=== PATIENT | female | born 1975 | race Caucasian/White ===

== ENCOUNTER 2019-03-19 12:58 | Observation (INO) ==
[2019-03-19 13:54] LABS: Basophils # 0.1 K/mcL (0.0-0.2); Basophils % 0.8 %; Eosinophils # 0.1 K/mcL (0.0-0.6); Eosinophils % 1.5 %; Hematocrit 36.1 % (35.3-44.9); Hemoglobin 12.1 g/dL (11.5-15.4); Immature Granulocytes % 0.2 % (0-4); Lymphocytes # 2.2 K/mcL (0.6-4.6); Lymphocytes % 33.1 %; Mean Corpuscular HGB Conc 33.5 g/dL (31.6-35.5); Mean Corpuscular Hemoglobin 28.8 pg (28.0-33.3); Mean Platelet Volume 9.4 fL (9.4-12.4); Monocytes # 0.6 K/mcL (0.0-1.3); Monocytes % 8.6 %; Neutrophils # 3.7 K/mcL (1.6-8.9); Platelet Count 283 K/mcL (140-400); Red Cell Distribution Width 12.2 % (11.5-14.5); Segmented Neutrophils % 55.8 %; White Blood Count 6.6 K/mcL (4.3-11.1)
[2019-03-19 14:05] LABS: Prothrombin Time 11.3 Seconds (9.4-12.1)
[2019-03-19 14:09] LABS: Activated Partial Thrombo Time 33.3 Seconds (26.0-36.0)
[2019-03-19 14:15] LABS: BUN/Creatinine Ratio 16 (6-26); Blood Urea Nitrogen 12 mg/dL (6-20); Calcium 9.2 mg/dL (8.6-10.3); Carbon Dioxide 26 mEq/L (23-29); Chloride 106 mEq/L (98-107); Glucose 91 mg/dL (70-105); Osmolality,Calculated 289 (280-300); Potassium 3.8 mEq/L (3.5-5.1); Sodium 140 mEq/L (136-145); Troponin I < 0.03 ng/mL (< 0.04); eGFR For African Americans > 60 (> 60); eGFR For Non-African Americans > 60 (> 60)
[2019-03-19] MEDS: Aspirin 81 MG TAB.CHEW PO SCH (15:10)
[2019-03-19] MEDS ORDERED: Naloxone 0.4 MG/ML INJ IVP PRN (15:45)
[2019-03-19] MEDS ORDERED: Ondansetron 4 MG/2 ML VIAL IVP PRN (15:45)
[2019-03-19] MEDS: Amoxicillin Susp 250 MG/5 ML UDC PO SCH (23:59)
[2019-03-20 01:04] LABS: Basophils # 0.1 K/mcL (0.0-0.2); Basophils % 0.7 %; Eosinophils # 0.1 K/mcL (0.0-0.6); Eosinophils % 1.6 %; Hematocrit 34.5 % (35.3-44.9); Hemoglobin 11.8 g/dL (11.5-15.4); Immature Granulocytes % 0.1 % (0-4); Lymphocytes # 3.6 K/mcL (0.6-4.6); Lymphocytes % 51.6 %; Mean Corpuscular HGB Conc 34.2 g/dL (31.6-35.5); Mean Corpuscular Hemoglobin 28.7 pg (28.0-33.3); Mean Corpuscular Volume 83.9 fL (83.0-100.0); Mean Platelet Volume 9.5 fL (9.4-12.4); Monocytes # 0.5 K/mcL (0.0-1.3); Monocytes % 6.5 %; Neutrophils # 2.7 K/mcL (1.6-8.9); Platelet Count 290 K/mcL (140-400); Red Blood Count 4.11 M/mcL (3.82-4.97); Red Cell Distribution Width 12.1 % (11.5-14.5); Segmented Neutrophils % 39.5 %; White Blood Count 6.9 K/mcL (4.3-11.1)
[2019-03-20 01:24] LABS: BUN/Creatinine Ratio 15 (6-26); Blood Urea Nitrogen 14 mg/dL (6-20); Calcium 8.9 mg/dL (8.6-10.3); Carbon Dioxide 23 mEq/L (23-29); Chloride 107 mEq/L (98-107); Chol/HDL Ratio 2.7 (0-4.9); Cholesterol 176 mg/dL (< 200); Glucose 162 mg/dL (70-105); HDL Cholesterol 66 mg/dL (40-59); LDL Cholesterol,Calculated 97 mg/dL (0-99); Osmolality,Calculated 292 (280-300); Potassium 3.3 mEq/L (3.5-5.1); Sodium 139 mEq/L (136-145); Triglycerides 65 mg/dL (< 150); eGFR For African Americans > 60 (> 60); eGFR For Non-African Americans > 60 (> 60)
[2019-03-20] MEDS: Acetaminophen 325 MG TABLET PO PRN ×2 (03:22→09:36)
[2019-03-20 07:06] VITALS: BP 107/68
[2019-03-20] MEDS: Aspirin 81 MG TAB.CHEW PO SCH (09:32)
[2019-03-20] MEDS: Amoxicillin Susp 250 MG/5 ML UDC PO SCH (09:36)
== END 2019-03-20 11:42 | disposition home or self-care (01) ==
LOC: EMEROOARM 12:58 → 3BNU 12:58
PROVIDERS: ADMIT Pharmacist; ATTEND Pharmacist